=== PATIENT | female | born 1955 | race Caucasian/White ===

== ENCOUNTER 2019-12-31 17:37 | Emergency (ER) | payer MEDICARE, OTHER ==
[2019-12-31 17:52] VITALS: BP 158/81
[2019-12-31] MEDS ORDERED: DIPH/PERTUSS(ACELL)/TETANUS VAC/PF 0.5 ML SYR (>=10YO) IM ONE (18:51)
[2019-12-31] MEDS ORDERED: CEPHALEXIN 500 MG CAPSULE PO ONE (18:51)
[2019-12-31] MEDS ORDERED: ACETAMINOPHEN 325 MG TABLET PO ONE (18:52)
--- NOTE | 2019-12-31 18:57 | ER Document Report ---
ED Extremity Problem, Lower - General Chief Complaint: Fall Injury Stated Complaint: FALL/LEFT ANKLE PAIN Time Seen by Provider: 12/31/19 18:47 Primary Care Provider: JUAN ANTONIO HUITRON PA-C [Primary Care Provider] - Follow up as needed Mode of Arrival: Ambulatory Information source: Patient Notes: 64-year-old female presents to ED for complaint of pain swelling and laceration to the left lower leg. She states this occurred on Monday. She states it started swelling right away but now the ankle is swollen. She states she does not have any idea when her last tetanus immunization was. She states that the pain is continuing to be significant. She is alert oriented respirations regular nonlabored speaking in full sentences. She states she does have a past medical history of COPD asthma and right elbow surgery. She states she did not come into the emergency room due to the COVID pandemic at the time of the laceration. It is well past time to suture this wound. TRAVEL OUTSIDE OF THE [place] IN LAST 30 DAYS: No - HPI Patient complains to provider of: Injury, Pain, Swelling Location: Leg Occurred: Other - Week ago Monday Where: Home Onset/Duration: Persistent Quality of pain: Other - Numbness Severity: Mild Pain Level: 1 Context: Fell, Laceration Recent injury: Yes Associated symptoms: Painful ambulation Exacerbated by: Hanging down, Movement, Walking Relieved by: Nothing - Related Data Allergies/Adverse Reactions: aspirin [Aspirin] Allergy (Mild, Verified 12/31/19 18:47) Home Medications: copd. asthma Past Medical History - General Information source: Patient - Social History Smoking Status: Former Smoker Chew tobacco use (# tins/day): No Frequency of alcohol use: None Drug Abuse: None Family History: Reviewed & Not Pertinent Patient has homicidal ideation: No - Past Medical History Cardiac Medical History: Reports: None Pulmonary Medical History: Reports: Hx Asthma, Hx Bronchitis, Hx COPD, Hx Pneumonia EENT Medical History: Reports: None Neurological Medical History: Reports: None Endocrine Medical History: Reports: None Renal/ Medical History: Reports: None Malignancy Medical History: Reports: None GI Medical History: Reports: Hx Ulcer Musculoskeletal Medical History: Reports Hx Arthritis, Reports Hx Musculoskeletal Trauma Skin Medical History: Reports None Psychiatric Medical History: Reports: None Traumatic Medical History: Reports: None Infectious Medical History: Reports: None Past Surgical History: Reports: Hx Appendectomy - Immunizations Immunizations up to date: Yes Hx Diphtheria, Pertussis, Tetanus Vaccination: Yes Hx Pneumococcal Vaccination: 01/17/12 Review of Systems - Review of Systems Constitutional: No symptoms reported EENT: No symptoms reported Cardiovascular: No symptoms reported Respiratory: No symptoms reported Gastrointestinal: No symptoms reported Genitourinary: No symptoms reported Female Genitourinary: No symptoms reported Musculoskeletal: Leg swelling, Ankle swelling, Other - Injury to the left tib- fib area Skin: No symptoms reported Hematologic/Lymphatic: No symptoms reported Neurological/Psychological: No symptoms reported -: Yes All other systems reviewed and negative Physical Exam - Vital signs Vitals: Temp Pulse Resp BP Pulse Ox 98.9 F 84 20 158/81 H 96 12/31/19 17:50 12/31/19 17:50 12/31/19 17:50 12/31/19 17:50 12/31/19 17:50 Interpretation: Normal - General General appearance: Appears well, Alert - HEENT Head: Normocephalic, Atraumatic Eyes: Normal Pupils: PERRL - Respiratory Respiratory status: No respiratory distress Chest status: Nontender Breath sounds: Normal Chest palpation: Normal - Cardiovascular Rhythm: Regular Heart sounds: Normal auscultation Murmur: No - Abdominal Inspection: Normal Distension: No distension Bowel sounds: Normal Tenderness: Nontender Organomegaly: No organomegaly - Back Back: Normal, Nontender - Extremities General upper extremity: Normal inspection, Nontender, Normal color, Normal ROM, Normal temperature General lower extremity: Normal color, Normal ROM, Normal temperature, Normal weight bearing. No: Tracie's sign Calf: Tender, Laceration - Neurological Neuro grossly intact: Yes Cognition: Normal Orientation: AAOx4 Marvell Coma Scale Eye Opening: Spontaneous Hali Coma Scale Verbal: Oriented Hali Coma Scale Motor: Obeys Commands Marvell Coma Scale Total: 15 Speech: Normal Motor strength normal: LUE, RUE, LLE, RLE Sensory: Normal - Psychological Associated symptoms: Normal affect, Normal mood - Skin Skin Temperature: Warm Skin Moisture: Dry Skin Color: Normal Course - Re-evaluation Re-evalutation: 12/31/19 22:14 Wound was cleaned with soap and water and bacitracin and gauze applied. Patient was given instructions on dressing and wound care. Patient verbalized understanding and agreement with treatment plan. Patient did not have any abnormalities noted on the x-rays. She was given a copy of the x-ray report and instructed to follow-up with her primary care doctor. Patient was able to verbalize understanding of this care. - Vital Signs Vital signs: Temp Pulse Resp BP Pulse Ox 98.9 F 84 20 158/81 H 96 12/31/19 18:47 12/31/19 17:50 12/31/19 17:50 12/31/19 17:50 12/31/19 17:50 - Diagnostic Test Radiology reviewed: Image reviewed, Reports reviewed Discharge - Discharge Clinical Impression: Fall Qualifiers: Encounter type: initial encounter Qualified Code(s): W19.XXXA - Unspecified fall, initial encounter Laceration of left lower leg Qualifiers: Encounter type: initial encounter Qualified Code(s): S81.812A - Laceration without foreign body, left lower leg, initial encounter Condition: Stable Disposition: HOME, SELF-CARE Additional Instructions: NON-SUTURED LACERATION: Your laceration did not require suturing. Some lacerations cannot be sutured because of increased infection risk, while others simply don't need stitches because they are shallow or very short. Your injury should be protected while it heals. Usually complete healing takes 10 to 14 days. Keep the dressing clean and dry, and change it every day. If you notice increasing pain, redness, swelling, drainage, or tender lumps in the armpit or groin above the injury, infection may be present. You should call the doctor at once. SOAP CLEANSING: Gently wash the wound daily using a mild soap (like Ivory, Phisoderm, Neutrogena). Use warm water, rubbing gently until all debris, ooze, and crusti ng have been washed from the wound. Allow to dry briefly (about 10 minutes) after cleaning. Repeat this cleansing at least three times a day for the first two days and then once or twice a day. ANTIBIOTIC OINTMENT PROTECTION: Your wounds are such that dressing them is not practical or optional. After cleansing, you should apply a thin coating of antibiotic ointment (Bacitracin, not Neosporin) to the wounds at least three times daily. This lessens infection risk, and may decrease the amount of scarring. Use a q-tip or dull butter knife, not your finger, to apply this ointment. Any debris or ooze which builds up in the ointment should be gently rubbed off with a sterile gauze pad. Harder crusting may need to be gently scrubbed off with a clean wash cloth with soap and warm water, perhaps applying a warm, wet wash cloth to the wound for ten minutes first. Development of redness, severe itching, or blistering may mean allergy to the ointment. See the doctor. TETANUS IMMUNIZATION GIVEN: You have been given an immunization against tetanus. Please record this in your records. In general, a booster is needed only once every 10 years. The tetanus shot protects against tetanus or "lockjaw," which is a complication of certain wound infections (the tetanus shot cannot protect against the actual infection). The immunization site may become warm and red due to local reaction. If this occurs, apply warm compresses and take aspirin or ibuprofen to reduce inflammation and discomfort. Return for evaluation if the reaction becomes severe. PROPHYLACTIC ANTIBIOTIC: The antibiotics which have been prescribed are designed to decrease the risk of infection. Only certain types of wounds benefit from this -- the typical cut, scrape, or burn DOES NOT require antibiotics. Of course, infection can still occur despite the use of prophylactic antibiotics. Your wound will heal with less chance of an infectious complication if you take the medication as directed. The most important dose is the FIRST dose, so don't delay filling the prescription! FOLLOW-UP CARE: Please follow-up primary doctor in __3___ days for an infection check and dressing change. If you have been referred to another physician for follow-up care, call that physicians office for an appointment as you were instructed. If you experience a significant change in your laceration, or if you are concerned there may be an infection (swelling, redness, drainage, increasing tenderness, red streaks, tender lumps in the armpit or groin above the laceration, or fever), return to the Emergency Department immediately re-evaluation. Prescriptions: Cephalexin Monohydrate [Keflex 500 mg Capsule] 500 mg PO Q6H 5 Days capsule Referrals: JUAN ANTONIO HUITRON PA-C [Primary Care Provider] - Follow up as needed
--- NOTE | 2019-12-31 19:26 | RADIOLOGY REPORT (SQ) ---
EXAM DESCRIPTION: TIBIA FIBULA LEFT IMAGES COMPLETED DATE/TIME: 12/31/2019 7:08 pm REASON FOR STUDY: fall injury COMPARISON: None. NUMBER OF VIEWS: Two views. TECHNIQUE: Two radiographic images acquired of the left tibia and fibula to include the knee and ank le in at least one projection. LIMITATIONS: None. FINDINGS: MINERALIZATION: Normal. BONES: No acute fracture or dislocation. Enthesiophyte at the quadriceps tendon insertion. SOFT TISSUES: No obvious swelling or foreign body. OTHER: No other significant finding. IMPRESSION: 1. NEGATIVE STUDY OF THE LEFT TIBIA AND FIBULA. TECHNICAL DOCUMENTATION: JOB ID: [id number] [employer]- All Rights Reserved Reading location - IP/workstation name: [facility]
== END 2019-12-31 21:01 | disposition home or self-care (01) ==
LOC: ER 17:37
DX: S81.812A Laceration without foreign body, left lower leg, initial encounter (principal); M25.473 Effusion, unspecified ankle; W01.0XXA Fall on same level from slipping, tripping and stumbling without subsequent striking against object, initial encounter; Y92.009 Unspecified place in unspecified non-institutional (private) residence as the place of occurrence of the external cause; R20.0 Anesthesia of skin; J44.9 Chronic obstructive pulmonary disease, unspecified; Z79.899 Other long term (current) drug therapy; Z23 Encounter for immunization; Z87.891 Personal history of nicotine dependence; Z88.8 Allergy status to other drugs, medicaments and biological substances
CPT/HCPCS: 99283; 90471; 73590; 90715; A9270 ×2